=== PATIENT | female | born 1975 | race Caucasian/White ===

== ENCOUNTER 2018-05-20 12:31 | Inpatient (IN) | payer OTHER ==
[~2018-05-20] VITALS: Ht 149.9 cm; Wt 79.0 kg
[2018-05-20 12:35] VITALS: Ht 149.9 cm; Wt 79.0 kg
[2018-05-20 13:39] LABS: BASOPHIL % 0.9 % (0-2); PLATELET COUNT 270 x10^3mcL (130-400); RED CELL DISTRIBUTION WIDTH 13.7 % (11.5-14.5)
[2018-05-20 14:01] LABS: UA SPECIFIC GRAVITY 1.025 (1.005-1.035); microscopic required? YES; urine erythrocyte TRACE (NEGATIVE)
[2018-05-20 14:35] LABS: AMPHETAMINE QUAL UR POSITIVE (See below)
[2018-05-20] MEDS ORDERED: LYRICA75 M1 (14:47)
[2018-05-20] MEDS ORDERED: NOR10T (14:47)
[2018-05-20] MEDS ORDERED: METFORMIN HYDR500 M1 (14:47)
[2018-05-20] MEDS ORDERED: GABAPENTIN100 M2 (14:49)
[2018-05-20 14:53] LABS: OSMOLALITY SERUM 299 mOsm/kg (278-298)
[2018-05-20 15:03] LABS: CALCIUM 9.4 mg/dL (8.5-10.1); CARBON DIOXIDE 23.9 mmol/L (21-32); CHLORIDE SERUM 105 mmol/L (98-107); GFR1 > 60 mL/min; GLUCOSE SERUM 102 mg/dL (74-106); POTASSIUM SERUM 3.4 mmol/L (3.5-5.1); SODIUM SERUM 143 mmol/L (136-145)
[2018-05-20 15:15] LABS: ALKALINE PHOSPHATASE 139 U/L (46-116); ALT/SGPT 42 U/L (14-59); AST/SGOT 22 U/L (15-37); BILIRUBIN TOTAL 0.41 mg/dL (0.20-1.00); FREE T4 1.42 ng/dL (0.76-1.46); LIPASE 139 IU/L (73-393)
[2018-05-20 17:23] VITALS: BP 101/53
[2018-05-20 20:17] VITALS: BP 104/59
[2018-05-21 04:56] VITALS: BP 115/75
[2018-05-21 15:05] LABS: BASOPHIL % 0.4 % (0-2); PLATELET COUNT 206 x10^3mcL (130-400); RED CELL DISTRIBUTION WIDTH 13.9 % (11.5-14.5)
[2018-05-21 15:09] LABS: CALCIUM 8.5 mg/dL (8.5-10.1); CARBON DIOXIDE 25.2 mmol/L (21-32); CHLORIDE SERUM 107 mmol/L (98-107); CREATININE SERUM 0.7 mg/dL (0.6-1.0); GFR1 > 60 mL/min; GLUCOSE SERUM 100 mg/dL (74-106); MAGNESIUM 2.2 mg/dL (1.8-2.4); PHOSPHOROUS 2.8 mg/dL (2.5-4.9); POTASSIUM SERUM 3.7 mmol/L (3.5-5.1); SODIUM SERUM 142 mmol/L (136-145)
[2018-05-21 17:44] VITALS: BP 118/71
[2018-05-22 04:39] VITALS: BP 111/68
[2018-05-22 17:10] VITALS: BP 111/62
[2018-05-22 20:30] VITALS: BP 126/77
[2018-05-23 05:10] VITALS: BP 107/55
[2018-05-23 06:01] LABS: BASOPHIL % 0.5 % (0-2); PLATELET COUNT 205 x10^3mcL (130-400); RED CELL DISTRIBUTION WIDTH 13.6 % (11.5-14.5)
[2018-05-23 06:13] LABS: CARBON DIOXIDE 26.4 mmol/L (21-32); CHLORIDE SERUM 109 mmol/L (98-107); CREATININE SERUM 0.6 mg/dL (0.6-1.0); GFR1 > 60 mL/min; GLUCOSE SERUM 107 mg/dL (74-106); SODIUM SERUM 144 mmol/L (136-145)
[2018-05-23 08:30] VITALS: BP 129/76
[2018-05-23] MEDS ORDERED: METFORMIN HCL850 MG PO (09:52)
[2018-05-23 18:55] VITALS: BP 124/64
[2018-05-23 21:04] VITALS: BP 162/76
[2018-05-23 22:52] VITALS: BP 134/80
[2018-05-24 05:45] VITALS: BP 118/51
[2018-05-24 06:32] LABS: BASOPHIL % 0.6 % (0-2); PLATELET COUNT 199 x10^3mcL (130-400); RED CELL DISTRIBUTION WIDTH 13.4 % (11.5-14.5)
[2018-05-24 06:36] LABS: CALCIUM 8.7 mg/dL (8.5-10.1); CARBON DIOXIDE 27.5 mmol/L (21-32); CHLORIDE SERUM 107 mmol/L (98-107); CREATININE SERUM 0.6 mg/dL (0.6-1.0); GFR1 > 60 mL/min; GLUCOSE SERUM 96 mg/dL (74-106); POTASSIUM SERUM 3.6 mmol/L (3.5-5.1); SODIUM SERUM 143 mmol/L (136-145)
[2018-05-24 08:41] VITALS: BP 126/80
[2018-05-24 14:21] VITALS: BP 126/80
== END 2018-05-24 16:25 | disposition home or self-care (01) | DRG 917 ==
LOC: ED 12:31 → EDBD 12:31 → MU 14:39 → DU 14:39 → MU 05-21 11:55
PROVIDERS: Emergency Medicine; Family Medicine
DX: T43.621A Poisoning by amphetamines, accidental (unintentional), initial encounter (principal); G92 Toxic encephalopathy; N17.0 Acute kidney failure with tubular necrosis; F31.12 Bipolar disorder, current episode manic without psychotic features, moderate; E86.0 Dehydration; E87.6 Hypokalemia; E83.41 Hypermagnesemia; F15.10 Other stimulant abuse, uncomplicated; F17.210 Nicotine dependence, cigarettes, uncomplicated; Z91.19 Patient's noncompliance with other medical treatment and regimen; Z59.0 Homelessness; Y92.89 Other specified places as the place of occurrence of the external cause
CPT/HCPCS: 36600; 82962; 83880; 84439; G0480; J1885; J7030; J7040; Q0162